=== PATIENT | male | born 1945 | race Two or more races ===

== ENCOUNTER → 2021-03-22 | Emergency (ER) | payer OTHER ==
[~2021-03-22] VITALS: Ht 165.1 cm; Wt 69.4 kg
[~2021-03-22] MED LIST: AMLODIPINE-OLM1 EAC2 PO; ATORVASTATIN CA40 MG PO; DETROL1 MG PO
== END | disposition home or self-care (01) ==
LOC: ER 08:28
DX: H11.32 Conjunctival hemorrhage, left eye (principal)